=== PATIENT | male | born 1990 | race Caucasian/White ===

== ENCOUNTER 2022-04-20 08:36 | Outpatient (CLI) | payer BC, SELFPAY ==
[2022-04-20 19:19] LABS: Alanine Aminotransferase 29 U/L (6-50); Albumin Level 4.4 g/dL (3.5-5.1); Alkaline Phosphatase 55 U/L (38-126); Anion Gap 8 mmol/L (8-16); Aspartate Amino Transferase 37 U/L (17-59); Bilirubin,Total 0.8 mg/dL (0.2-1.3); Blood Urea Nitrogen 16 mg/dL (9-20); Calcium 9.1 mg/dL (8.4-10.2); Carbon Dioxide 30 mmol/L (22-30); Chloride 101 mmol/L (98-107); Cholesterol 179 mg/dL (0-200); Estimated Glomerular Filt Rate > 60; Glucose 96 mg/dL (65-110); HDL Direct 44 mg/dL; Potassium 4.1 mmol/L (3.4-5.0); Sodium 139 mmol/L (137-145); Triglycerides 119 mg/dL (<150)
[2022-04-20 19:30] LABS: LDL Cholesterol Direct 114 mg/dL
== END 2022-04-20 08:37 | disposition home or self-care (01) ==
LOC: ANHGOSHLAB 08:38
PROVIDERS: PCP Family Medicine; Visit Provider Family Medicine
DX: Z13.220 Encounter for screening for lipoid disorders (principal); Z13.228 Encounter for screening for other metabolic disorders
CPT/HCPCS: 36415; 80053; 80061

== ENCOUNTER → 2022-09-29 08:35 | Outpatient (CLI) | payer BC, SELFPAY ==
--- NOTE | ~2022-09-29 | US_ITS ---
Limited abdominal ultrasound CLINICAL HISTORY: Left lower quadrant pain TECHNIQUE: Targeted sonographic imaging at the left lower quadrant was performed transabdominally. FINDINGS: Left kidney measures 11.3 cm in length, without evidence of hydronephrosis. No renal mass e vident. Spleen measures 12.6 cm in length, unremarkable. No abnormal mass lesion or fluid collection seen in left lower quadrant. Peristalsing bowel loops are noted. No free fluid seen. IMPRESSION: No significant abnormality seen in the left lower quadrant. No hernia identified. Reviewed, dictated and finalized at location M. UNTS PAYABLE REPRESENTATIVE IMPRESSION: No significant abnormality seen in the left lower quadrant. No hernia identifie d.
== END ==
PROVIDERS: PCP Family Medicine; Visit Provider Family Medicine
DX: R10.32 Left lower quadrant pain (principal)
CPT/HCPCS: 76705

== ENCOUNTER 2023-04-22 09:49 | Outpatient (CLI) | payer BC, SELFPAY ==
[2023-04-22 11:15] LABS: Basophils Absolute Auto 0.1 K/mm3 (0.0-0.1); Basophils Percent Auto 1.2 % (0.2-1.2); Eosinophils Absolute Auto 0.2 K/mm3 (0-0.3); Eosinophils Percent Auto 2.7 % (0-4.4); Hematocrit 44.9 % (42.0-52.0); Hemoglobin 14.8 g/dL (14.0-18.0); Immature Granulocyte Absolute 0.01 K/mm3 (0.00-0.031); Immature Granulocyte Percent A 0.2 % (0-0.5); Lymphocytes Absolute Auto 1.93 K/mm3 (0.9-3.2); Lymphocytes Percent Auto 32.8 % (18.3-44.2); Mean Corpuscular Hemoglobin 27.9 pg (26-34); Mean Corpuscular Volume 84.7 fl (80-100); Mean Platelet Volume 11.8 fl (7.4-10.4); Monocytes Absolute Auto 0.6 K/mm3 (0.1-0.6); Monocytes Percent Auto 10.5 % (2.6-8.5); Neutrophils Absolute Auto 3.1 K/mm3 (1.3-6.7); Neutrophils Percent Auto 52.6 % (45.5-73.1); Platelet Count Result 192 k/mm3 (150-375); Red Cell Distribution Width 12.1 % (11.5-14.5); White Blood Count 5.9 K/mm3 (4.5-10.0)
[2023-04-22 11:22] LABS: Alanine Aminotransferase 28 U/L (6-50); Albumin Level 4.3 g/dL (3.5-5.1); Alkaline Phosphatase 51 U/L (38-126); Anion Gap 6 mmol/L (8-16); Aspartate Amino Transferase 38 U/L (17-59); Bilirubin,Total 1.1 mg/dL (0.2-1.3); Blood Urea Nitrogen 15 mg/dL (9-20); Carbon Dioxide 31 mmol/L (22-30); Chloride 102 mmol/L (98-107); Cholesterol 173 mg/dL (0-200); Estimated Glomerular Filt Rate > 60; Glucose 89 mg/dL (65-110); HDL Direct 41 mg/dL; Potassium 4.3 mmol/L (3.4-5.0); Sodium 139 mmol/L (137-145); Triglycerides 86 mg/dL (<150)
[2023-04-22 11:33] LABS: LDL Cholesterol Direct 105 mg/dL
[2023-04-22 11:35] LABS: Vitamin D 25 Hydroxy 27.2 ng/mL
== END 2023-04-22 09:50 | disposition home or self-care (01) ==
LOC: ANHGOSHLAB 09:51
PROVIDERS: PCP Family Medicine; Visit Provider Family Medicine
DX: Z13.220 Encounter for screening for lipoid disorders (principal); Z13.228 Encounter for screening for other metabolic disorders; R53.83 Other fatigue; E55.9 Vitamin D deficiency, unspecified
CPT/HCPCS: 36415; 80053; 80061; 82306; 85025

== ENCOUNTER 2024-05-15 09:00 | Outpatient (CLI) | payer BC, SELFPAY ==
[2024-05-15 15:00] LABS: Carbon Dioxide 29 mmol/L (22-30); Chloride 100 mmol/L (98-107); Potassium 3.9 mmol/L (3.4-5.0); Sodium 139 mmol/L (137-145)
[2024-05-15 15:01] LABS: Alanine Aminotransferase 31 U/L (6-50); Albumin Level 4.1 g/dL (3.5-5.1); Alkaline Phosphatase 56 U/L (38-126); Anion Gap 10 mmol/L (4-12); Aspartate Amino Transferase 52 U/L (17-59); Bilirubin,Total 0.7 mg/dL (0.2-1.3); Blood Urea Nitrogen 11 mg/dL (9-20); Cholesterol 173 mg/dL (0-200); Estimated Glomerular Filt Rate > 60; Glucose 70 mg/dL (65-110); HDL Direct 39 mg/dL; Triglycerides 176 mg/dL (<150)
[2024-05-15 15:09] LABS: LDL Cholesterol Direct 106 mg/dL
== END 2024-05-15 09:01 | disposition home or self-care (01) ==
LOC: ANHGOSHLAB 09:01
PROVIDERS: PCP Family Medicine; Visit Provider Family Medicine
DX: Z13.220 Encounter for screening for lipoid disorders (principal); Z13.228 Encounter for screening for other metabolic disorders
CPT/HCPCS: 36415; 80053; 80061

== ENCOUNTER 2025-04-08 20:19 | Emergency (ER) | payer BC, SELFPAY ==
[2025-04-08] VITALS (12 sets, daily range): BP systolic 135–153; BP diastolic 88–101; PULSE 87–101; RESP 10–25; TEMP 36.7; O2SAT 93–99
--- NOTE | ~2025-04-08 | XR_ITS ---
CHEST RADIOGRAPH, PA AND LATERAL CLINICAL HISTORY: chest pain . COMPARISON: None available TECHNIQUE: PA and lateral views of the chest. FINDINGS The cardiomediastinal silhouette is unremarkable. The lungs are clear. IMPRESSION: No focal infiltrate or effusion. Reviewed, dictated and finalized at location A.
--- NOTE | ~2025-04-08 | CT_ITS ---
Clinical Indication: Chest pain, shortness of breath CT Scan of the Chest with Contrast: Technique: Contiguous sections were acquired throughout the chest after intravenous administration of 100 cc of Omnipaque 350. Dose reduction technique was used on this scan by utilizing automated expos ure control and iterative reconstruction technique. The dose-length product (DLP) was 786.48 mGy-cm. Findings: There is no evidence of any significant mediastinal, hilar or axillary lymphadenopathy. There is no f illing defect in the pulmonary arterial tree to suggest pulmonary embolus. There is no evidence of ao rtic dissection or aneurysm. There is no evidence of pleural or pericardial effusion. The lungs are clear. No pulmonary nodules or infiltrates are noted. Images through the upper abdomen reveal no abnormalities. Impression: No evidence of pulmonary embolus, aortic dissection, or aortic aneurysm. Clear lungs. Reviewed, dictated and finalized at [facility]. Impression: No evidence of pulmonary embolus, aortic dissection, or aortic aneurysm. Clear lungs.
--- NOTE | 2025-04-08 20:21 | ECG_ITS ---
Test Date: 2025-04-08 20:26:38 Measurements Intervals [place] Rate: 102 P: 28 MD: 168 QRS: 31 QRSD: 105 T: 25 QT: 348 QTc: 453 Interpretive Statements SINUS TACHYCARDIA MINIMAL Q WAVES- HIGH LATERAL LEADS BASELINE ARTIFACT- I, II, III, AVR, AVL, AVF, V1 BORDERLINE ECG No previous ECG available for comparison Electronically Signed On 04-08-2025 20:28:40 CDT by Patrick Scott D.O.
[2025-04-08 20:44] LABS: Hematocrit 42.8 % (42.0-52.0); Hemoglobin 14.6 g/dL (14.0-18.0); Immature Granulocyte Percent A 0.3 % (0-0.5); Lymphocytes Absolute Auto 2.83 K/mm3 (0.9-3.2); Mean Corpuscular HGB Conc 34.1 g/dl (32-36); Mean Corpuscular Hemoglobin 28.4 pg (26-34); Mean Corpuscular Volume 83.3 fl (80-100); Nucleated Red Blood Cells Absolute Auto 0.000 K/mm3 (0.0-0.012); Nucleated Red Blood Cells Perc 0.0 % (0.0-0.2); Platelet Count Result 215 k/mm3 (150-375); Red Blood Count 5.14 M/mm3 (4.6-6.20); White Blood Count 8.0 K/mm3 (4.5-10.0)
[2025-04-08 21:01] LABS: INR 1.0; Prothrombin Time 13.6 Seconds (11.1-14.7)
[2025-04-08 21:02] LABS: Partial Thromboplastin Time 28.3 Seconds (22.3-36.8)
[2025-04-08 21:03] LABS: Alanine Aminotransferase 27 U/L (6-50); Albumin Level 4.4 g/dL (3.5-5.1); Alkaline Phosphatase 58 U/L (38-126); Anion Gap 6 mmol/L (4-12); Aspartate Amino Transferase 30 U/L (17-59); Bilirubin,Total 0.6 mg/dL (0.2-1.3); Blood Urea Nitrogen 13 mg/dL (9-20); Calcium 8.6 mg/dL (8.4-10.2); Carbon Dioxide 26 mmol/L (22-30); Chloride 104 mmol/L (98-107); Estimated CRCL calculation 112 ml/min; Estimated Glomerular Filt Rate > 60; Glucose 102 mg/dL (65-110); Lipase 77 U/L (23-300); Potassium 3.8 mmol/L (3.4-5.0); Sodium 136 mmol/L (137-145); Total Protein 7.6 g/dL (6.3-8.2)
[2025-04-08 21:10] LABS: Troponin I < 0.012 ng/mL (0.000-0.034)
[2025-04-08] MEDS: ASPIRIN 81 MG CHEWABLE TABLET 324 MG PO (22:28)
--- NOTE | 2025-04-08 22:41 | ED_ITS ---
HPI - Chest Pain General Chief Complaint: Chest Pain Stated Complaint: mid epigastric, chest pain Time Seen by Provider: 04/08/25 22:25 History of Present Illness HPI narrative: 34-year-old male presenting with some retrosternal chest discomfort intermittent in nature without any seemingly provoking or palliative factors. Symptoms are intermittent. Has happened over previously and he has had echocardiograms and EKGs without any acute findings. Patient states he does not have any real triggers and does not associate this with food, deep breathing, palpation or anxiety. Feels like he gets a sensation that he has to catch his breath very quickly with a sharp sensation in the retrosternal area that goes away after several seconds and does not persist. His family urged him to go the hospital today for an evaluation. Patient is not having any symptoms at this time. No chest pain, shortness a breath, nausea, vomiting, back pain, fever, chills. No traumatic injuries. No history of asthma, anxiety, cholelithiasis or a medical conditions to his knowledge. Does not take any prescription medications. Was otherwise in his normal state of health. Related Data Home Medications ?Medication ?Instructions ?Recorded ?Confirmed ?Last Taken ?Type No Home Medications 04/17/21 05/12/24 Unknown History Allergies Allergy/AdvReac Type Severity Reaction Status Date / Time No Known Allergies Allergy Verified 04/08/25 22:29 Review of Systems 2 Review of Systems: As reviewed above in HPI [facility] Family History Family History Grandparent Diabetes mellitus, Onset Age: 77 Family history of malignant neoplasm, Onset Age: 74 Family history of congestive heart failure, Onset Age: 77 Mother Patient's mother is in good health Father Patient's father is in good health Social History Social History Smoking status: Never smoker Second hand tobacco smoke exposure: No Alcohol intake: current Alcohol use details: Rare Substance use: never Substance use type: does not use Lack of Transportation: No Lack of Food: Never True Current Housing: I Have Housing Concerned About Future Housing: No Difficulty Paying Gas/Electric Bills: No Difficulty Paying for Meds: No Currently Unemployed: No Education: Bachelor's Degree Difficulty w/ Childcare or Family Care: No Living arrangements: with family Additional living arrangements comments: Occupation/Education: occupation 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 Mucous membranes moist. NECK: Supple. CHEST: [Clear to auscultation. No respiratory distress.] HEART: [Regular rate and rhythm]. No murmur heard. [Normal peripheral pulses.] ABDOMEN: [Soft, nondistended], [nontender], [No rigidity or guarding] EXTREMITIES: Normal range of motion. [No edema.] SKIN: Warm, dry, no rash. NEURO: [No focal deficits]. Alert and oriented [x3.] PSYCH: [Normal mood and affect.] Course Vital Signs Vital signs: Vital Signs Temperature 36.7 C 04/08/25 20:29 Pulse Rate 94 04/08/25 20:29 Respiratory Rate 16 04/08/25 20:29 Blood Pressure 150/100 H 04/08/25 20:29 Pulse Oximetry 99 04/08/25 20:29 Oxygen Delivery Room Air 04/08/25 20:29 Temperature 36.7 C 04/08/25 20:29 Pulse Rate 84 04/09/25 03:24 Respiratory Rate 21 H 04/09/25 03:24 Blood Pressure 128/92 H 04/09/25 03:24 Pulse Oximetry 96 04/09/25 03:24 Oxygen Delivery Room Air 04/08/25 22:29 MDM - Chest Pain MDM Narrative Medical decision making narrative: 34-year-old male presenting with some retrosternal chest discomfort intermittent in nature without any seemingly provoking or palliative factors. Symptoms are intermittent. Has happened over previously and he has had echocardiograms and EKGs without any acute findings. Patient states he does not have any real triggers and does not associate this with food, deep breathing, palpation or anxiety. Feels like he gets a sensation that he has to catch his breath very quickly with a sharp sensation in the retrosternal area that goes away after several seconds and does not persist. His family urged him to go the hospital today for an evaluation. Patient is not having any symptoms at this time. No chest pain, shortness a breath, nausea, vomiting, back pain, fever, chills. No traumatic injuries. No history of asthma, anxiety, cholelithiasis or a medical conditions to his knowledge. Does not take any prescription medications. Was otherwise in his normal state of health. Patient overall is well appearing not any acute distress and actually has no symptoms during my assessment. Mildly hypertensive but not significant. No tachycardia, fever, hypoxemia or blood pressure concerns. No upper quadrant tenderness to palpation, no epigastric reproducible tenderness to palpation, strong symmetric pulses, no reproducible sternal pain with palpation or deep breathing. Clear breath sounds throughout. Patient's symptomatology very much is likely musculoskeletal versus GI in nature rather than cardiac such as ACS. Potential for esophageal spasms or costochondritis/Catch syndrome. No cardiac risk factors at this time. He notes signs of DVT or any pulse deficits. Laboratory studies obtained including CBC, CMP, EKG, chest x-ray and delta troponin. Placed on can filling and closing machine tender and re-evaluated. Initial troponin is negative, delta troponin shows slight rise to 0.014 which is still within normal limits but we will trend this for 6 hour level and obtain further workup. Given patient's vague complaints and no current symptomatology a CT angiography of his chest was ordered which resulted as no acute pulmonary embolism or acute cardiopulmonary process in the chest. His 6 hour troponin came back to undetectable and he remained asymptomatic during all the repeat evaluations. We had laurent discussions about his health and going forward the plan of action. Given no urgent or emergent concerns we did recommend outpatient stress testing and cardiology referral with follow-up instructions. Will refer him to the [facility] heart care group upon discharge and have him call 1st thing Wednesday morning for the appointment. He was also requesting a new PCP which was provided. He was given strict return precautions which she verbalized understanding and was safe for discharge home at this time. Medical Records Data Attestation: I reviewed the patient's medical records. Lab Data Attestation: I reviewed the patient's lab results. 04/08/25 20:38 04/08/25 20:39 Labs: Lab Results 04/08/25 04/08/25 04/08/25 Range/Units 20:38 20:39 23:19 WBC 8.0 (4.5-10.0) K/mm3 RBC 5.14 (4.6-6.20) M/mm3 Hgb 14.6 (14.0-18.0) g/dL Hct 42.8 (42.0-52.0) % MCV 83.3 (80-100) fl MCH 28.4 (26-34) pg MCHC 34.1 (32-36) g/dl RDW 12.5 (11.5-14.5) % Plt Count 215 (150-375) k/mm3 MPV 10.7 H (7.4-10.4) fl Immature Gran % (Auto) 0.3 (0-0.5) % Neut % (Auto) 53.3 (45.5-73.1) % Lymph % (Auto) 35.4 (18.3-44.2) % [place] % (Auto) 7.9 (2.6-8.5) % Eos % (Auto) 2.1 (0-4.4) % Baso % (Auto) 1.0 (0.2-1.2) % Lymph # (Auto) 2.83 (0.9-3.2) K/mm3 [place] # (Auto) 0.6 (0.1-0.6) K/mm3 Eos # (Auto) 0.2 (0-0.3) K/mm3 Baso # (Auto) 0.1 (0.0-0.1) K/mm3 Abs Immat Gran (auto) 0.02 (0.00-0.031) K/mm3 Absolute Neuts (auto) 4.3 (1.3-6.7) K/mm3 Absolute Nucleated RBC 0.000 (0.0-0.012) K/mm3 Nucleated RBC % 0.0 (0.0-0.2) % PT 13.6 (11.1-14.7) Seconds INR 1.0 APTT 28.3 (22.3-36.8) Seconds Sodium 136 L (137-145) mmol/L Potassium 3.8 (3.4-5.0) mmol/L Chloride 104 (98-107) mmol/L Carbon Dioxide 26 (22-30) mmol/L Anion Gap 6 (4-12) mmol/L BUN 13 (9-20) mg/dL Creatinine 0.93 (0.7-1.3) mg/dL Estim Creat Clear Calc 112 ml/min Estimated GFR > 60 (59 - ) Glucose 102 (65-110) mg/dL Calcium 8.6 (8.4-10.2) mg/dL Total Bilirubin 0.6 (0.2-1.3) mg/dL AST 30 (17-59) U/L ALT 27 (6-50) U/L Alkaline Phosphatase 58 (38-126) U/L Troponin I < 0.012 0.014 (0.000-0.034) ng/mL Total Protein 7.6 (6.3-8.2) g/dL Albumin 4.4 (3.5-5.1) g/dL Lipase 77 (23-300) U/L 04/09/25 Range/Units 02:25 WBC (4.5-10.0) K/mm3 RBC (4.6-6.20) M/mm3 Hgb (14.0-18.0) g/dL Hct (42.0-52.0) % MCV (80-100) fl MCH (26-34) pg MCHC (32-36) g/dl RDW (11.5-14.5) % Plt Count (150-375) k/mm3 MPV (7.4-10.4) fl Immature Gran % (Auto) (0-0.5) % Neut % (Auto) (45.5-73.1) % Lymph % (Auto) (18.3-44.2) % [place] % (Auto) (2.6-8.5) % Eos % (Auto) (0-4.4) % Baso % (Auto) (0.2-1.2) % Lymph # (Auto) (0.9-3.2) K/mm3 [place] # (Auto) (0.1-0.6) K/mm3 Eos # (Auto) (0-0.3) K/mm3 Baso # (Auto) (0.0-0.1) K/mm3 Abs Immat Gran (auto) (0.00-0.031) K/mm3 Absolute Neuts (auto) (1.3-6.7) K/mm3 Absolute Nucleated RBC (0.0-0.012) K/mm3 Nucleated RBC % (0.0-0.2) % PT (11.1-14.7) Seconds INR APTT (22.3-36.8) Seconds Sodium (137-145) mmol/L Potassium (3.4-5.0) mmol/L Chloride (98-107) mmol/L Carbon Dioxide (22-30) mmol/L Anion Gap (4-12) mmol/L BUN (9-20) mg/dL Creatinine (0.7-1.3) mg/dL Estim Creat Clear Calc ml/min Estimated GFR (59 - ) Glucose (65-110) mg/dL Calcium (8.4-10.2) mg/dL Total Bilirubin (0.2-1.3) mg/dL AST (17-59) U/L ALT (6-50) U/L Alkaline Phosphatase (38-126) U/L Troponin I < 0.012 (0.000-0.034) ng/mL Total Protein (6.3-8.2) g/dL Albumin (3.5-5.1) g/dL Lipase (23-300) U/L Imaging Data Attestation: I personally reviewed and interpreted this imaging study as follows: My impression: No PE, no pneumonia, no acute cardiopulmonary process Discharge Plan Discharge Clinical Impression: Chest pain Patient Disposition: Home Condition: Stable Instructions: Antibiotic Form, Chest Pain (ED) Additional Instructions: Follow-up with the provided operations officer trust department for close outpatient follow-up appointment. Return with any recurrent and persisting concerns, new symptoms such as intractable pain, chest pressure sensations, diaphoresis, difficulty breathing, passing out or losing consciousness or any other emergent issues. Patient Language: Chinese Prescriptions: No Action No Home Medications Follow-up/Referrals: Cosmo Garcia MD [Physician] - 3 Days (Chest pain, outpatient stress testing) Edward,Grady Alvarado DO [Non-Staff] - Ajith Man MD [Physician] - 3 Days (Chest pain, outpatient stress testing) Time of Disposition: 03:31
[2025-04-08 23:54] LABS: Troponin I 0.014 ng/mL (0.000-0.034)
[2025-04-09] VITALS (18 sets, daily range): BP systolic 128–138; BP diastolic 86–99; PULSE 78–96; RESP 9–23; O2SAT 94–98
--- NOTE | 2025-04-09 02:04 | ECG_ITS ---
Test Date: 2025-04-09 00:00:55 Measurements Intervals [place] Rate: 86 P: 24 CO: 176 QRS: 35 QRSD: 102 T: 30 QT: 358 QTc: 430 Interpretive Statements SINUS RHYTHM MINIMAL Q WAVES- INF/HIGH LAT LEADS BASELINE ARTIFACT- I, AVR, V1 BORDERLINE ECG Compared to ECG 04/08/2025 20:26:38 HEART RATE HAS DECREASED Electronically Signed On 04-09-2025 07:05:25 CDT by Patrick Scott D.O.
--- NOTE | 2025-04-09 02:29 | PC.NURSE ---
Patient taken to CT at this time.
--- NOTE | 2025-04-09 02:40 | ECG_ITS ---
Test Date: 2025-04-09 02:18:51 Measurements Intervals [place] Rate: 83 P: 25 GA: 175 QRS: 28 QRSD: 105 T: 32 QT: 367 QTc: 432 Interpretive Statements SINUS RHYTHM MINIMAL Q WAVES- INF/HIGH LATLEADS BASELINE ARTIFACT- I, III, AVL, AVF BORDERLINE ECG Compared to ECG 04/09/2025 00:00:55 No significant changes Electronically Signed On 04-09-2025 07:47:35 CDT by Patrick Scott D.O.
[2025-04-09 03:04] LABS: Troponin I < 0.012 ng/mL (0.000-0.034)
== END 2025-04-09 03:40 | disposition home or self-care (01) ==
PROVIDERS: Emergency Provider Student in an Organized Health Care Education/Training Program
DX: R07.89 Other chest pain (principal); R00.0 Tachycardia, unspecified
CPT/HCPCS: 36415; 71046; 71275; 80053; 83690; 84484; 85025; 85610; 85730; 93005; 99284; A9270; Q9967